=== PATIENT | male | born 1960 | race Caucasian/White ===

== ENCOUNTER 2019-01-01 | Inpatient (IN) | payer BC, OTHER ==
[~2019-01-01] VITALS: Ht 170.2 cm; Wt 99.1 kg
--- NOTE | 2019-01-01 00:13 | NUR ---
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 PT AAOX4 NO ACUTE DISTRESS NOTED, RESP EVEN AND UNLABORED, SKIN WARM NONDIAPHORETIC. PLACE PT ON CARDIAC MONITORING, CONTINUOUS POX, O2@2l/NC. PT AT BEDSIDE. ER MD AT BEDSIDE TO EVAL PT WITH ORDERS RECEIVED. WILL CARRY OUT ORDERS. STARTED SL 18G TO LAC, BLOOD DRAWN AND SENT TO LAB.
[2019-01-01] MEDS ORDERED: NITROGLYCERIN 0.4 MG/TAB BOTTLE SL ONE (00:30)
[2019-01-01] MEDS ORDERED: ASPIRIN 81 MG TAB.CHEW PO ONE (00:30)
[2019-01-01] MEDS ORDERED: NITROGLYCERIN 0.4 MG/TAB BOTTLE ONE (00:31)
[2019-01-01] MEDS ORDERED: ASPIRIN 81 MG TAB.CHEW ONE (00:31)
[2019-01-01 00:34] LABS: BASOPHILS # (AUTO) 0.1 /CMM (0.0-0.2); BASOPHILS % (AUTO) 0.8 % (0.0-2.0); EOSINOPHILS % (AUTO) 2.8 % (0.0-6.0); HEMATOCRIT 39 % (39-51); HEMOGLOBIN 13.2 g/dL (13.5-17.5); LYMPHOCYTES # (AUTO) 2.4 /CMM (0.8-4.8); LYMPHOCYTES % (AUTO) 27.6 % (20.0-44.0); MEAN CORPUSCULAR HGB CONC 34 g/dl (31.0-36.0); MEAN CORPUSCULAR VOLUME 91 fL (80-96); MONOCYTES # (AUTO) 0.8 /CMM (0.1-1.30); MONOCYTES % (AUTO) 8.7 % (2.0-12.0); NEUTROPHILS # (AUTO) 5.3 /CMM (1.8-8.9); NEUTROPHILS % (AUTO) 60.1 % (43.0-81.0); PLATELET COUNT (AUTO) 245 /CMM (150-450); RED BLOOD CELL COUNT(AUTO) 4.33 MIL/uL (4.5-6.0); WHITE BLOOD COUNT (AUTO) 8.8 K/uL (4.3-11.0)
--- NOTE | 2019-01-01 00:38 | NUR ---
PT AMBULATED WITH STEADY GAIT TO BATHROOM.
[2019-01-01 00:40] LABS: CALCIUM, SERUM 8.9 mg/dL (8.5-10.1); CARBON DIOXIDE 30 mmol/L (21-32); CHLORIDE 105 mmol/L (98-107); GLUCOSE 143 mg/dL (74-106); POTASSIUM 3.6 mmol/L (3.5-5.1); SODIUM SERUM 142 mmol/L (136-145); UREA NITROGEN, BLOOD 10 mg/dL (7-18)
[2019-01-01 00:53] LABS: ALANINE AMINOTRANSFERASE 22 U/L (12-78); ALBUMIN 3.8 g/dL (3.4-5.0); ALKALINE PHOSPHATASE 87 U/L (46-116); ASPARTATE AMINOTRANSFERASE 9 U/L (15-37); B-TYPE NATRIURETIC PEPTIDE 27 PG/ML (0-125); BILIRUBIN,TOTAL 0.2 mg/dL (0.2-1.0); TOTAL PROTEIN, SERUM 7.4 g/dL (6.4-8.2)
--- NOTE | 2019-01-01 01:19 | NUR ---
XRAY AT BEDSIDE.
--- NOTE | 2019-01-01 01:55 | NUR ---
PT RESTING BED, NAD NOTED. WILL CONTINUE TO MONITOR.
--- NOTE | 2019-01-01 02:22 | NUR ---
REPORT GIVEN TO ELIJAH CORTEZ RN FOR ELIO.
--- NOTE | 2019-01-01 03:00 | NUR ---
Patient is resting comfortably in bed with eyes closed. Easily aroused. NAD NOTED.
--- NOTE | 2019-01-01 03:26 | NUR ---
CALLED DR BERGER. TO REPORTING OCCURRED.
[2019-01-01 03:35] VITALS: BP 129/88
--- NOTE | 2019-01-01 03:42 | NUR ---
BRAD CALLED TO READ RADIOLOGY REPORT
--- NOTE | 2019-01-01 04:00 | NUR ---
TELE/RN OPENING NOTES PT RECEIVED FROM ER VIA IKE, GONZALO CATALAN [phone] AT BEDSIDE. ON ROOM AIR, BREATHING EVEN AND UNLABORED. DENIES SOB, CHEST PAIN, N/V. IN NO ACUTE DISTRESS. A/OX4. PLACED ON TELE MONITOR SHOWING SB/SR 60. IV TO LAC PATENT AND INTACT. ORIENTED PT TO ROOM AND CALL LIGHT. BELONGINGS LIST COMPLETED. BED IN LOW/LOCKED POSITION WITH CALL LIGHT IN REACH, BILATERAL UPPER SIDE RAILS IN PLACE. WILL CONTINUE TO MONITOR
[2019-01-01] MEDS ORDERED: IV 1/2NS 1000 ML 1,000 ML IV PRN (04:30)
[2019-01-01] MEDS ORDERED: ACETAMINOPHEN 325 MG TABLET PO PRN (04:30)
[2019-01-01] MEDS ORDERED: HYDROCODONE/APAP 5/325MG 1 EACH TABLET PO PRN ×2 (04:30→09:00)
[2019-01-01 07:20] LABS: CHOLESTEROL 186 mg/dL (<200); HDL CHOLESTEROL 42 mg/dL (40-60); LDL 126 mg/dL (0-99); TRIGLYCERIDES 152 mg/dL (30-150)
[2019-01-01] MEDS ORDERED: PANTOPRAZOLE 40 MG TABLET.DR PO SCH (07:30)
--- NOTE | 2019-01-01 07:30 | NUR ---
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 Alert and oriented x4, able to verbalize needs. No complaints of chest pain, pain or nausea/vomiting at this time. Respirations even and unlabored on room air, no acute distress noted. On external cardiac/vascular sonographer; current rhythm sinus bradycardia at 57 bpm. Peripheral IV to the left AC 18 gauge, intact, patent and infusing 1/2 NS @ 75 mL/hr. Updated patient on current plan of care and safety measures. Patient verbalized understanding. Safety and fall precautions in place: bed in lowest and locked position, side rails up x2, bed alarm on, call light and personal possessions within reach. Patient verbalized understanding. Will continue to monitor and intervene as needed.
--- NOTE | 2019-01-01 07:38 | NUR ---
TELE/RN CLOSING NOTES PT RESTING COMFORTABLY IN BED. A/OX4. OPENS EYES TO NAME. ON ROOM AIR, BREATHING EVEN AND UNLABORED. DENIES CHEST PAIN, SOB, N/V. IN NO ACUTE DISTRESS. IV TO LAC PATENT AND INTACT RUNNING IVF ORDERED. ON TELE MONITOR SHOWING SB RANGING FROM 45-55. ASYMPTOMATIC. NO SIGNIFICANT CHANGES OVERNIGHT. ALL NEEDS MET. BED IN LOW/LOCKED POSITION WITH CALL LIGHT IN REACH. BILATERAL UPPER SIDE RAILS IN PLACE. ENDORSED TO DAY SHIFT RN ELIO.
[2019-01-01 08:00] VITALS: BP 136/84
--- NOTE | 2019-01-01 08:49 | NUR ---
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 PHARMACY AND PRIMARY NURSE AWARE.
[2019-01-01] MEDS ORDERED: ASPIRIN 81 MG TAB.CHEW PO SCH ×2 (09:00)
[2019-01-01] MEDS ORDERED: REGADENOSON 0.4 MG/5 ML DISP.SYRIN IVP ONE (13:30)
--- NOTE | 2019-01-01 13:47 | NUR ---
Patient left unit in stable condition for Radiology for Lexiscan test with cable splicing technician. Ambulates with steady gait, vital signs stable. No chest pain or acute stress at this time.
--- NOTE | 2019-01-01 15:00 | NUR ---
Patient return to room in stable condition from Radiology for Lexiscan test with chemistry laboratory technician. Ambulates with steady gait, vital signs stable. No chest pain or acute stress at this time. Will continue to monitor.
--- NOTE | 2019-01-01 15:48 | NUR ---
NM CARDIAC STRESS TEST WAS COMPLETED. EDINSON.
[2019-01-01 16:00] VITALS: BP 128/63
--- NOTE | 2019-01-01 19:00 | NUR ---
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 Alert and oriented x4, able to verbalize needs. No complaints of pain at this time. Respirations even and unlabored on room air, no acute distress noted. Vital signs stable, ambulates with steady gait. Peripheral IV to the left AC 18 gauge removed with catheter tip intact. No redness, swelling or bleeding of the site noted. Refused skin assessment and discharge photos, states he would just like to leave at this time. Provided discharge instructions and Exitcare, including signs and symptoms of chest pain and related emergency to patient and spouse, patient verbalized understanding and acknowledged via signature on discharge instructions. Removed ID band. Discharged with all personal belongings, signed belongings form. [facility]orted [facility]. Left via private car with spouse, [place].
== END 2019-01-01 19:00 | disposition home or self-care (01) | DRG 313 ==
LOC: ER 00:03 → TELE 02:15
PROVIDERS: ADMIT Internal Medicine; ATTEND Internal Medicine
DX: R07.89 Other chest pain (principal); R68.84 Jaw pain; E78.5 Hyperlipidemia, unspecified; Z82.49 Family history of ischemic heart disease and other diseases of the circulatory system; Z83.3 Family history of diabetes mellitus
CPT/HCPCS: 36415; 71045-TC; 80048-TC; 80061-TC; 80076-TC; 82962-TC; 83880; 84484-TC; 85025-TC; 85730-TC; 87081-TC; 93307-TC; A9502; G0378; J2785; J3490